=== PATIENT | male | born 1990 | race Caucasian/White ===

== ENCOUNTER → 2019-01-30 | Outpatient (CLI) | payer OTHER ==
[2019-01-30 09:25] LABS: HEMATOCRIT 45.7 % (42.0-52.0); HEMOGLOBIN 15.6 g/dl (14.0-18.0); MEAN CELL VOLUME 92.7 fl (80.0-94.0); MEAN CORPUSCULAR HGB 31.6 pg (27.0-31.0); MEAN CORPUSCULAR HGB CONC 34.1 g/dl (33.0-37.0); MEAN PLATELET VOLUME 9.9 fl (9.6-12.3); RED BLOOD COUNT 4.93 10*6/uL (4.50-5.90); RED CELL DISTRI WIDTH 11.9 % (0-14.5); WHITE BLOOD COUNT 6.9 10*3/uL (4.8-10.8)
[2019-01-30 09:32] LABS: BUN 15 mg/dl (7-24); CHLORIDE 106 mmol/L (98-107); CHOLESTEROL 216 mg/dL (<200); CREATININE 0.98 mg/dL (0.70-1.30); POTASSIUM 4.3 mmol/L (3.5-5.1); SGOT/AST 32 IU/L (3-35); SGPT/ALT 69 U/L (12-78); SODIUM 138 mmol/L (136-145); TRIGLYCERIDES 175 mg/dl (<150); VLDL CHOLESTEROL 35 mg/dL (6-40)
[2019-01-30 09:34] LABS: ALKALINE PHOSPHATASE 58 U/L (45-117); HDL CHOLESTEROL 31 mg/dl (40-60); LDL CHOLESTEROL 150 mg/dL (9-159); TOTAL PROTEIN 7.7 gm/dL (6.4-8.2)
== END | disposition home or self-care (01) ==
LOC: LAB 08:08
PROVIDERS: Family Medicine
DX: Z13.220 Encounter for screening for lipoid disorders (principal); I10 Essential (primary) hypertension; E55.9 Vitamin D deficiency, unspecified